=== PATIENT | male | born 1960 | race Caucasian/White ===

== ENCOUNTER → 2016-04-19 | Day surgery (SDC) | payer MEDICARE, BC ==
[~2016-04-19] VITALS: Ht 167.6 cm; Wt 54.6 kg
[~2016-04-19] MED LIST: ALTACE10 MG PO; AMOXICILLIN500 MG PO; APRESOLINE50 MG PO; ASPIRIN LO-DOSE81 MG PO; BACTRIM DS1 TAB; CATAPRES0.1 MG PO; COLACE100 MG PO; COREG12.5 M1 PO; CRESTOR10 MG PO; CYMBALTA30 MG PO; DIFLUCAN100 MG PO; DILAUDID 2MG(HYD2 MG PO; DRISDOL 5050000 UNIT PO; FLOMAX0.4 MG PO; GENTAMICIN15 GM TOP; GLUCAGON 1 MG PE1 MG SUB-Q; HYGROTON25 MG PO; LANTUS (IN100 UNIT/M SUB-Q; LASIX20 MG PO; LEVEMIR100 UNIT/1 SUB-Q; LIPITOR80 MG; LOPRESSOR25 MG PO; MIRALAX17 GM PO; NEURONTIN100 MG PO; NEXIUM40 MG PO; NORCO 5-325 MG1 TAB PO; NORCO 5-325 TA1 EACH PO; NORVASC10 MG PO; NORVASC5 MG PO; NOVOLIN-N100 UNIT/M SUB-Q; NOVOLOG FL100 UNIT/1 SUB-Q; NOVOLOG100 UNIT/M SUB-Q; NYSTATIN100000 UNI PO; PROTONIX40 MG PO; RAPAFLO8 MG PO; REGLAN10 MG PO; ROXICODONE 5MG (5 MG PO; SANTYL15 GM TOP; SPECTAZOLE15 GM TOP; THERA-VITE W/ B1 TAB PO; TRESIBA FL100 UNIT/1 SUB-Q; VIGAMOX (MOX3 ML/BOT OPHTH; VITAMIN D50000 UNIT PO
--- NOTE | ~2016-04-19 | OR ---
PATIENT'S NAME: ALLIE [facility] AGE: 56 Y [address] ROOM: [place] [address] [place]ATION: [facility] [place]: 04/19/2016 OR/Procedure Report DISCHARGE DATE: FAMILY PHYSICIAN: Maryjo Alfaro MD ATTENDING PHYSICIAN: NOAH DE LA FUENTE SURGEON: Noah De La Fuente MD GAMMA FACILITIES OPERATOR: DATE OF PROCEDURE: 04/19/2016 PREOPERATIVE DIAGNOSIS: End-stage renal disease. POSTOPERATIVE DIAGNOSIS: End-stage renal disease. PROCEDURE PERFORMED: Right arm brachiocephalic AV fistula. LEAD SOFTWARE TESTER: ALEXANDER Brown. ANESTHESIA: General. ESTIMATED BLOOD LOSS: 10 mL. OPERATIVE FINDINGS: Good thrill and bruit in the fistula. Good radial and ulnar signals at the end of the case. DESCRIPTION OF PROCEDURE: The patient was brought to the operating room, placed supine on the operating table. Prepped and draped in a sterile manner. Preoperative time-out was performed. The patient received preoperative antibiotics. We used ultrasound guidance to identify the location of the brachial artery as well as the cephalic vein. We then made an incision 2 cm proximal to the antecubital fossa, dissected down to the fascia, and incised the fascia in a longitudinal manner. We dissected out the brachial artery in a 360-degree fashion. We then did the same thing for the cephalic vein. We then ligated and transected it distally, gave 5000 units of heparin. We made an arteriotomy and sized to 4 mm and then did a standard running 6-0 Prolene anastomosis from the vein to the artery. There was a good thrill and bruit in the fistula. There was a strong radial and ulnar signal at the end of the case. Heparin was reversed with protamine locally in the wound. Thrombin was used for hemostasis. Deep layers were closed with 2-0 and 3-0 Vicryl. Skin was closed with running 4-0 Monocryl. The patient tolerated the procedure well and was transferred to recovery room and then allowed home later that day. PATIENT'S NAME: ALLIE [facility] AGE: 56 Y [address] ROOM: [place], [place] [address] LOCATION: [facility] [place] DATE: 04/19/2016 OR/Procedure Report DISCHARGE DATE: FAMILY PHYSICIAN: Maryjo Alfaro MD ATTENDING PHYSICIAN: NOAH DE LA FUENTE MD FKM/modl /[id number] d: 04/19/162226 t: 04/21/16 1011, OPERATIVE SUMMARY
== END | disposition disaster alternative care site (69) ==
LOC: GPOC 04-12 14:00 → GSDC 08:05
PROC: 03170ZF Bypass Right Brachial Artery to Lower Arm Vein, Open Approach (ICD-10-PCS; principal; 2016-04-19)
DX: E10.22 Type 1 diabetes mellitus with diabetic chronic kidney disease (principal); I12.0 Hypertensive chronic kidney disease with stage 5 chronic kidney disease or end stage renal disease; N18.6 End stage renal disease; E78.5 Hyperlipidemia, unspecified; I73.9 Peripheral vascular disease, unspecified; I25.10 Atherosclerotic heart disease of native coronary artery without angina pectoris; K21.9 Gastro-esophageal reflux disease without esophagitis; E11.42 Type 2 diabetes mellitus with diabetic polyneuropathy; I25.2 Old myocardial infarction; N52.9 Male erectile dysfunction, unspecified; M06.9 Rheumatoid arthritis, unspecified; F17.210 Nicotine dependence, cigarettes, uncomplicated; Z90.49 Acquired absence of other specified parts of digestive tract; Z98.49 Cataract extraction status, unspecified eye; Z98.890 Other specified postprocedural states
CPT/HCPCS: J0690; J1644; J2001; J2720; J3010; J7030